=== PATIENT | female | born 1975 | race Caucasian/White ===

== ENCOUNTER 2016-10-28 09:22 | Emergency (ER) | payer OTHER | END 2016-10-28 10:58 | disposition home or self-care (01) | LOC: ER 09:22 | DX: L73.9 Follicular disorder, unspecified (principal); R21 Rash and other nonspecific skin eruption; J45.909 Unspecified asthma, uncomplicated; M54.9 Dorsalgia, unspecified; F17.210 Nicotine dependence, cigarettes, uncomplicated; Z88.0 Allergy status to penicillin; Z88.2 Allergy status to sulfonamides; Z88.5 Allergy status to narcotic agent; Z88.6 Allergy status to analgesic agent; Z79.899 Other long term (current) drug therapy; Z79.1 Long term (current) use of non-steroidal anti-inflammatories (NSAID) | CPT/HCPCS: 99282 ==

== ENCOUNTER 2016-12-10 20:24 | Emergency (ER) | payer OTHER ==
[2016-12-10 21:32] LABS: URINE BILIRUBIN NEGATIVE (NEGATIVE); URINE BLOOD 3+ (NEGATIVE); URINE GLUCOSE (UA) NORMAL (NORMAL); URINE KETONE NEGATIVE (NEGATIVE); URINE LEUKOCYTE ESTERASE NEGATIVE (NEGATIVE); URINE NITRATE NEGATIVE (NEGATIVE); URINE PROTEIN NEGATIVE (NEGATIVE); UROBILINOGEN NORMAL mg/dL (<1.0)
[2016-12-10 21:47] LABS: URINE BACTERIA FEW (NONE SEEN); URINE RBC >20 /[HPF] (0-2); URINE WBC 0-5 /[HPF] (0-5)
== END 2016-12-11 00:11 | disposition home or self-care (01) ==
LOC: ER 20:24
PROVIDERS: Internal Medicine
DX: M54.9 Dorsalgia, unspecified (principal); M79.1 Myalgia; Z86.14 Personal history of Methicillin resistant Staphylococcus aureus infection; J45.909 Unspecified asthma, uncomplicated; Z88.0 Allergy status to penicillin; Z88.1 Allergy status to other antibiotic agents; Z88.5 Allergy status to narcotic agent; Z88.6 Allergy status to analgesic agent
CPT/HCPCS: 74150; 81001; 81025; 99070; 99283-25